=== PATIENT | male | born 1995 | race Caucasian/White ===

== ENCOUNTER 2017-11-19 01:10 | Emergency (ER) | payer OTHER ==
[2017-11-19 01:21] VITALS: BP 135/85
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
== END 2017-11-19 01:40 | disposition left against medical advice (07) ==
LOC: ED 01:10
DX: L03.221 Cellulitis of neck (principal); F17.200 Nicotine dependence, unspecified, uncomplicated
CPT/HCPCS: 99283

== ENCOUNTER 2019-01-12 01:36 | Outpatient (CLI) | payer SELFPAY | END 2019-01-12 01:37 | disposition critical access hospital (66) | LOC: EMS 01:36 | PROVIDERS: ATTEND Surgery | DX: M25.551 Pain in right hip (principal); M79.601 Pain in right arm; S01.81XA Laceration without foreign body of other part of head, initial encounter; Y35.93XA Legal intervention, means unspecified, suspect injured, initial encounter | CPT/HCPCS: A0425; A0429 ==

== ENCOUNTER 2019-01-12 01:49 | Emergency (ER) | payer OTHER ==
[2019-01-12 02:08] LABS: BASOPHILS # (AUTO) 0.1 10^3/uL (0.0-0.1); BASOPHILS % (AUTO) 0.7 %; EOSINOPHILS # (AUTO) 0.2 10^3/uL (0.0-0.7); EOSINOPHILS % (AUTO) 1.6 %; HGB - HEMOGLOBIN 14.9 g/dL (14.0-18.0); LYMPHOCYTES # (AUTO) 1.8 10^3/uL (1.5-3.5); LYMPHOCYTES % (AUTO) 17.6 %; MEAN CORPUSCULAR HEMOGLOBIN 30.7 pg (27.0-31.0); MEAN CORPUSCULAR HGB CONC 33.4 g/dL (32.0-36.0); MEAN CORPUSCULAR VOLUME 91.8 fL (80.0-94.0); MEAN PLATELET VOLUME 9.6 fL (7.4-11.4); MONOCYTES # (AUTO) 0.9 10^3/uL (0.0-1.0); MONOCYTES % (AUTO) 8.9 %; NEUTROPHILS # (AUTO) 7.3 10^3/uL (1.5-6.6); NEUTROPHILS % (AUTO) 70.8 %; PLT - PLATELET COUNT 249 10^3/uL (130-450); RED BLOOD COUNT 4.86 10^6/uL (4.70-6.10); WHITE BLOOD COUNT 10.4 x10^3/uL (4.8-10.8)
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
[2019-01-12 02:24] LABS: ALBUMIN 4.5 g/dL (3.2-5.5); ALBUMIN/GLOBULIN RATIO 1.4 (1.0-2.2); ALKALINE PHOSPHATASE 95 IU/L (42-121); ALT ALANINE AMINOTRANSFERASE 34 IU/L (10-60); AST ASPARTATE AMINOTRANSFERASE 42 IU/L (10-42); BILIRUBIN,TOTAL 1.2 mg/dL (0.2-1.0); BUN - BLOOD UREA NITROGEN 18 mg/dL (6-20); CALCIUM 9.9 mg/dL (8.5-10.3); CARBON DIOXIDE - CO2 23 mmol/L (21-32); CHLORIDE 104 mmol/L (101-111); CREATININE 1.3 mg/dL (0.6-1.2); GFR - MDRD 68 (>89); GLUCOSE 125 mg/dL (70-100); LIPASE 25 U/L (22-51); SODIUM 142 mmol/L (135-145); TOTAL PROTEIN 7.8 g/dL (6.7-8.2)
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
[2019-01-12 04:20] VITALS: BP 125/75
== END 2019-01-12 04:25 | disposition home or self-care (01) ==
LOC: EDUNIT# → ED 01:49
DX: S39.011A Strain of muscle, fascia and tendon of abdomen, initial encounter (principal); S01.112A Laceration without foreign body of left eyelid and periocular area, initial encounter; S40.011A Contusion of right shoulder, initial encounter; M25.551 Pain in right hip; M54.2 Cervicalgia; V28.0XXA Motorcycle driver injured in noncollision transport accident in nontraffic accident, initial encounter; Y35.813A Legal intervention involving manhandling, suspect injured, initial encounter; Y93.89 Activity, other specified; L01.00 Impetigo, unspecified; F17.200 Nicotine dependence, unspecified, uncomplicated
CPT/HCPCS: 36415; 70450; 72125; 80053; 80320; 83690; 84484; 85025; 99283; 99285

== ENCOUNTER 2019-11-30 21:47 | Emergency (ER) | payer MEDICAID, OTHER ==
--- NOTE | 2019-11-30 21:50 | ED Physician Documentation ---
History of Present Illness - Stated complaint Stated Complaint: ABD PX - History obtained from History obtained from: Patient (Male who presents with a 2 to 3-hour history of diffuse abdominal pain now worsened the right upper quadrant he reports originally it started around the periumbilical region. He does report nausea without vomiting he denies diarrhea or constipation denies any fevers or dysuria or hematuria or flank pain.Denies any history of previous similar episodes d enies any chronic medical conditions such as diabetes.He denies any alcohol or drug use.) Review of Systems Constitutional: reports: Reviewed and negative Eyes: reports: Reviewed and negative Ears: reports: Reviewed and negative Nose: reports: Reviewed and negative Throat: reports: Reviewed and negative Cardiac: reports: Reviewed and negative Respiratory: reports: Reviewed and negative GI: reports: Abdominal Pain : reports: Reviewed and negative Skin: reports: Reviewed and negative Musculoskeletal: reports: Reviewed and negative Neurologic: reports: Reviewed and negative Psychiatric: reports: Reviewed and negative Endocrine: reports: Reviewed and negative Immunocompromised: reports: Reviewed and negative PD PAST MEDICAL HISTORY - Past Medical History Cardiovascular: None Respiratory: None Neuro: None Endocrine/Autoimmune: None GI: None : None HEENT: None Psych: Other Musculoskeletal: None Derm: None - Past Surgical History Past Surgical History: No - Present Medications Home Medications: Ambulatory Orders Medication Instructions Recorded Confirmed No Known Home Medications 11/30/19 11/30/19 - Allergies Allergies/Adverse Reactions: Allergies Allergy/AdvReac Type Severity Reaction Status Date / Time No Known Drug Allergies Allergy Verified 11/30/19 21:56 - Social History Does the pt smoke?: Yes Smoking Status: Current every day smoker Does the pt drink ETOH?: No Does the pt have substance abuse?: No - Immunizations Immunizations are current?: No Immunizations: TDAP >10years/unknown - POLST Patient has POLST: No PD ED PE NORMAL - Vitals Vital signs reviewed: Yes - General General: Alert and oriented X 3, No acute distress, Well developed/nourished - HEENT HEENT: Atraumatic, PERRL - Neck Neck: Supple, no meningeal sign - Cardiac Cardiac: RRR, No murmur, Strong equal pulses - Respiratory Respiratory: No respiratory distress, Clear bilaterally - Abdomen Abdomen: Other (The patient is voluntarily guarding there is tenderness around the umbilical region as well as the right upper quadrant negative psoas sign he does have some tenderness at McBurney's point as well as in the right upper quadrant. 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, No motor deficit, No sensory deficit, Normal speech - Psych Psych: Normal mood, Normal affect Results - Vitals Vitals: Vital Signs - 24 hr 11/30/19 11/30/19 11/30/19 21:50 22:01 23:53 Temperature 37.2 C 37.2 C 37.1 C Heart Rate 72 72 69 Respiratory 20 20 16 Rate Blood Pressure 131/88 H 131/88 H 146/98 H O2 Saturation 100 100 97 Oxygen O2 Source Room air - Labs Labs: Laboratory Tests 11/30/19 11/30/19 11/30/19 22:20 22:20 22:20 WBC 6.7 RBC 5.17 Hgb 15.9 Hct 46.0 MCV 89.0 MCH 30.8 MCHC 34.6 RDW 12.6 Plt Count 226 MPV 10.4 Neut # (Auto) 3.4 Lymph # (Auto) 2.4 [place] # (Auto) 0.6 Eos # (Auto) 0.3 Baso # (Auto) 0.1 Absolute Nucleated RBC 0.00 Nucleated RBC % 0.0 PT 12.1 INR 1.1 APTT 29.3 Sodium 138 Potassium 3.7 Chloride 104 Carbon Dioxide 23 Anion Gap 11.0 BUN 14 Creatinine 0.8 Estimated GFR (MDRD) 119 Glucose 136 H Lactic Acid Calcium 9.7 Total Bilirubin 1.2 H Direct Bilirubin 0.1 AST 26 ALT 34 Alkaline Phosphatase 61 Total Creatine Kinase 141 Total Protein 7.4 Albumin 4.6 Globulin 2.8 Lipase 25 Urine Color Urine Clarity Urine pH Ur Specific [place] Urine Protein Urine Glucose (UA) Urine Ketones Urine Occult Blood Urine Nitrite Urine Bilirubin Urine Urobilinogen Ur Leukocyte Esterase Ur Microscopic Review Urine Culture Comments Urine Opiates Screen Ur Oxycodone Screen Urine Methadone Screen Ur Propoxyphene Screen Ur Barbiturates Screen Ur Tricyclics Screen Ur Phencyclidine Scrn Ur Amphetamine Screen U Methamphetamines Scrn U Benzodiazepines Scrn Urine Cocaine Screen U Cannabinoids Screen Ethyl Alcohol < 5.0 11/30/19 11/30/19 22:20 23:08 WBC RBC Hgb Hct MCV MCH MCHC RDW Plt Count MPV Neut # (Auto) Lymph # (Auto) [place] # (Auto) Eos # (Auto) Baso # (Auto) Absolute Nucleated RBC Nucleated RBC % PT INR APTT Sodium Potassium Chloride Carbon Dioxide Anion Gap BUN Creatinine Estimated GFR (MDRD) Glucose Lactic Acid 1.6 Calcium Total Bilirubin Direct Bilirubin AST ALT Alkaline Phosphatase Total Creatine Kinase Total Protein Albumin Globulin Lipase Urine Color YELLOW Urine Clarity CLEAR Urine pH 7.5 Ur Specific [place] 1.010 Urine Protein NEGATIVE Urine Glucose (UA) NEGATIVE Urine Ketones NEGATIVE Urine Occult Blood NEGATIVE Urine Nitrite NEGATIVE Urine Bilirubin NEGATIVE Urine Urobilinogen 0.2 (NORMAL) Ur Leukocyte Esterase NEGATIVE Ur Microscopic Review NOT INDICATED Urine Culture Comments NOT INDICATED Urine Opiates Screen POSITIVE H Ur Oxycodone Screen NEGATIVE Urine Methadone Screen NEGATIVE Ur Propoxyphene Screen NEGATIVE Ur Barbiturates Screen NEGATIVE Ur Tricyclics Screen NEGATIVE Ur Phencyclidine Scrn NEGATIVE Ur Amphetamine Screen NEGATIVE U Methamphetamines Scrn NEGATIVE U Benzodiazepines Scrn NEGATIVE Urine Cocaine Screen NEGATIVE U Cannabinoids Screen POSITIVE H Ethyl Alcohol PD MEDICAL DECISION MAKING - ED course Complexity details: reviewed results, re-evaluated patient, considered differential (Pancreatitis, appendicitis, cholecystitis, peptic ulcer disease.), d/w patient (patient reports pain completely resolved, asking for food to eat. ct and labs unremarkable. plan to dc w f/u w pcp tomorrow.) Departure - Departure Disposition: 01 Home, Self Care Clinical Impression: Abdominal pain Qualifiers: Abdominal location: unspecified location Qualified Code(s): R10.9 - Unspecified abdominal pain Condition: Stable Instructions: Abdominal Pain Follow-Up: your, doctor [Other] - Tomorrow Discharge Date/Time: 11/30/19 23:54
[2019-11-30] MEDS ORDERED: MORPHINE 2 MG/ML CARPUJECT IVP STA ×2 (22:04→23:14)
[2019-11-30] MEDS ORDERED: ONDANSETRON 4 MG/2 ML VIAL IVP STA (22:04)
[2019-11-30] MEDS ORDERED: SODIUM CHLORIDE 0.9% 1,000 ML IV STA (22:04)
[2019-11-30 22:23] LABS: BASOPHILS # (AUTO) 0.1 10^3/uL (0.0-0.1); EOSINOPHILS # (AUTO) 0.3 10^3/uL (0.0-0.7); EOSINOPHILS % (AUTO) 3.9 %; HGB - HEMOGLOBIN 15.9 g/dL (14.0-18.0); LYMPHOCYTES # (AUTO) 2.4 10^3/uL (1.5-3.5); LYMPHOCYTES % (AUTO) 35.5 %; MEAN CORPUSCULAR HEMOGLOBIN 30.8 pg (27.0-31.0); MEAN CORPUSCULAR HGB CONC 34.6 g/dL (32.0-36.0); MEAN PLATELET VOLUME 10.4 fL (7.4-11.4); MONOCYTES # (AUTO) 0.6 10^3/uL (0.0-1.0); MONOCYTES % (AUTO) 8.5 %; NEUTROPHILS # (AUTO) 3.4 10^3/uL (1.5-6.6); PLT - PLATELET COUNT 226 10^3/uL (130-450); RED BLOOD COUNT 5.17 10^6/uL (4.70-6.10); RED CELL DISTRIBUTION WIDTH 12.6 % (12.0-15.0); WHITE BLOOD COUNT 6.7 x10^3/uL (4.8-10.8)
[2019-11-30 22:28] LABS: INR 1.1 (0.8-1.2); PT - PROTHROMBIN TIME 12.1 secs (9.9-12.6)
[2019-11-30 22:36] LABS: PARTIAL THROMBOPLASTIN TIME 29.3 secs (24.9-33.3)
[2019-11-30] MEDS ORDERED: IOVERSOL 320 100 ML VIAL IVP ONE ×2 (22:37→23:21)
[2019-11-30 22:40] LABS: ALBUMIN 4.6 g/dL (3.2-5.5); ALKALINE PHOSPHATASE 61 IU/L (42-121); ALT ALANINE AMINOTRANSFERASE 34 IU/L (10-60); AST ASPARTATE AMINOTRANSFERASE 26 IU/L (10-42); BILIRUBIN,DIRECT 0.1 mg/dL (0.1-0.5); BILIRUBIN,TOTAL 1.2 mg/dL (0.2-1.0); BUN - BLOOD UREA NITROGEN 14 mg/dL (6-20); CALCIUM 9.7 mg/dL (8.5-10.3); CARBON DIOXIDE - CO2 23 mmol/L (21-32); CHLORIDE 104 mmol/L (101-111); CK- CREATINE KINASE 141 IU/L (22-269); CREATININE 0.8 mg/dL (0.6-1.2); GLUCOSE 136 mg/dL (70-100); LIPASE 25 U/L (22-51); SODIUM 138 mmol/L (135-145); TOTAL PROTEIN 7.4 g/dL (6.7-8.2)
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
[2019-11-30 23:51] LABS: MUDS CUTOFF CONCENTRATIONS CUTOFF CONC BELOW:
[2019-11-30 23:52] LABS: BILIRUBIN,URINE NEGATIVE (NEGATIVE); GLUCOSE, URINE (UA) NEGATIVE (NEGATIVE); KETONES,URINE (UA) NEGATIVE (NEGATIVE); LEUKOCYTE ESTERASE, URINE NEGATIVE (NEGATIVE); NITRITE,URINE NEGATIVE (NEGATIVE); OCCULT BLOOD,URINE NEGATIVE (NEGATIVE); PH,URINE 7.5 PH (5.0-7.5); PROTEIN,URINE NEGATIVE (NEGATIVE); UROBILINOGEN,URINE 0.2 (NORMAL) E.U./dL (NORMAL)
[2019-11-30 23:53] LABS: CLARITY,URINE CLEAR (CLEAR)
[2019-11-30 23:54] VITALS: BP 146/98
[2019-12-01 00:10] LABS: AMPHETAMINE SCREEN,URINE NEGATIVE (NEGATIVE); BENZODIAZEPINES SCREEN, URINE NEGATIVE (NEGATIVE); COCAINE SCREEN URINE NEGATIVE (NEGATIVE); METHADONE SCREEN, URINE NEGATIVE (NEGATIVE); METHAMPHETAMINES SCREEN, URINE NEGATIVE (NEGATIVE); OPIATE SCREEN, URINE POSITIVE (NEGATIVE); OXYCODONE SCREEN, URINE NEGATIVE (NEGATIVE); PROPOXYPHENE SCREEN, URINE NEGATIVE (NEGATIVE); TRICYCLIC ANTIDEPRESSANT,URINE NEGATIVE (NEGATIVE)
== END 2019-11-30 23:54 | disposition home or self-care (01) ==
LOC: ED 21:47
DX: R10.9 Unspecified abdominal pain (principal); F17.200 Nicotine dependence, unspecified, uncomplicated
CPT/HCPCS: 36415; 74177; 80048; 80076; 80306; 80320; 81003; 82550; 83605; 83690; 85025; 85610; 85730; 96361; 96374; 96376; 99283; 99284; Q9967; 81001; 87086

== ENCOUNTER 2020-03-31 20:51 | Outpatient (CLI) | payer MEDICAID | END 2020-03-31 20:52 | disposition EMS.NT | LOC: EMS 20:51 | PROVIDERS: ATTEND Surgery | DX: S00.31XA Abrasion of nose, initial encounter (principal); S40.811A Abrasion of right upper arm, initial encounter; S40.211A Abrasion of right shoulder, initial encounter; X58.XXXA Exposure to other specified factors, initial encounter; Y93.02 Activity, running ==

== ENCOUNTER 2020-06-29 17:57 | Emergency (ER) | payer MEDICAID ==
[2020-06-29 18:04] VITALS: BP 130/82
[2020-06-29] MEDS ORDERED: HYDROcod/ACET 5/325 Prepack 4 PO STA (18:24)
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
--- NOTE | 2020-06-29 18:26 | XRAY Report ---
PROCEDURE: Hand 3 View RT INDICATIONS: hand inj TECHNIQUE: 3 views of the hand(s) acquired. COMPARISON: None FINDINGS: Bones: Acute transverse fracture through mid shaft of fifth metacarpal bone is seen with minimal dors al angulation at fracture site.. No suspicious bony lesions. Soft tissues: Soft tissue swelling over fifth metacarpal shaft fracture site is seen. No suspicious soft tissue calcifications. IMPRESSION: 1. Acute fifth metacarpal shaft fracture as above. Reviewed by: Lopez Stubbs MD on 06/29/2020 6:25 PM PST Approved by: Lopez Stubbs MD on 06/29/2020 6:25 PM PST Station ID: [id number]
== END 2020-06-29 18:34 | disposition home or self-care (01) ==
LOC: ED 17:57
DX: S62.356A Nondisplaced fracture of shaft of fifth metacarpal bone, right hand, initial encounter for closed fracture (principal); W22.8XXA Striking against or struck by other objects, initial encounter; F17.200 Nicotine dependence, unspecified, uncomplicated
CPT/HCPCS: 29125; 99283

== ENCOUNTER 2020-09-07 22:03 | Outpatient (CLI) | payer MEDICAID | END 2020-09-07 22:04 | disposition critical access hospital (66) | LOC: EMS 22:03 | PROVIDERS: ATTEND Emergency Medicine | DX: R40.4 Transient alteration of awareness (principal) | CPT/HCPCS: A0425; A0427; A0999 ==

== ENCOUNTER 2020-09-07 22:19 | Emergency (ER) | payer MEDICAID ==
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
[2020-09-07] MEDS ORDERED: OLANZapine 10 MG VIAL IM STA (22:33)
[2020-09-07] MEDS ORDERED: WATER FOR INJECTION,STERILE 10 ML MC ONE (22:46)
[2020-09-07] MEDS ORDERED: OLANZapine 10 MG VIAL IM ONE (22:46)
== END 2020-09-07 22:55 | disposition left against medical advice (07) ==
LOC: EDUNIT# → ED 22:19
DX: T50.904A Poisoning by unspecified drugs, medicaments and biological substances, undetermined, initial encounter (principal); R40.20 Unspecified coma; Z78.1 Physical restraint status; R45.4 Irritability and anger; F17.200 Nicotine dependence, unspecified, uncomplicated; Z53.29 Procedure and treatment not carried out because of patient's decision for other reasons
CPT/HCPCS: 99281; 99285

== ENCOUNTER 2022-04-13 20:39 | Outpatient (CLI) | payer MEDICAID | END 2022-04-13 23:59 | disposition E | LOC: EMS 20:39 | DX: I46.9 Cardiac arrest, cause unspecified (principal); S09.90XA Unspecified injury of head, initial encounter; V29.408A Other motorcycle driver injured in collision with unspecified motor vehicles in traffic accident, initial encounter; Y92.413 State road as the place of occurrence of the external cause ==